=== PATIENT | male | born 1955 | race Hispanic/Latino ===

== ENCOUNTER 2018-05-09 13:58 | Emergency (ER) | payer MEDICARE, BC ==
[2018-05-09 13:58] VITALS: BMI 33.9
[2018-05-09 14:10] VITALS: RESP 18; TEMP 97.9
--- NOTE | 2018-05-09 14:37 | ED PDOC ---
Arrival/HPI - General Chief Complaint: Chest Pain Time Seen by Provider: 05/09/18 14:04 Historian: Patient, Family (Family member at bedside helped provide information ) - History of Present Illness Narrative History of Present Illness (Text): 05/09/18 14:12 62 year old male, whose past medical history includes anxiety, depression, kidney cancer (partial right kidney removal), prostate cancer, cardiac catherization, who presents to the emergency department complaining of sudden chest pressure and palpitations prior to arrival. Patient reports he was having lunch when he suddenly started sweating and feeling "anxious", so he went to turn the air conditioner in in his car to cool down. Patient notes he did not have to get any chemotherapy or other treatments for cancer. Patient denies any fevers or any other complaints. Deposit Clerk: Dr. Esquivel 05/09/18 15:59 Time/Duration: Prior to Arrival Symptom Onset: Sudden Symptom Course: Unchanged Activities at Onset: Light Past Medical History - Provider Review Nursing Documentation Reviewed: Yes - Renal Hx Renal Cancer: Yes Other/Comment: Prostate cancer - Psychiatric Hx Anxiety: Yes Hx Depression: Yes Hx Emotional Abuse: No Hx Physical Abuse: No Hx Substance Use: No - Surgical History Other/Comment: Partial right kidney removal - Suicidal Assessment Feels Threatened In Home Enviroment: No Family/Social History - Physician Review Nursing Documentation Reviewed: Yes Family/Social History: No Known Family HX Smoking Status: Unknown If Ever Smoked Hx Alcohol Use: No Hx Substance Use: No Hx Substance Use Treatment: No Allergies/Home Meds Allergies/Adverse Reactions: Allergies Penicillins Adverse Reaction (Verified 05/09/18 14:11) ANAPHYLAXIS Home Medications: Home Meds Medication Instructions Recorded Confirmed Alprazolam [Xanax] 1 mg PO QID 01/15/12 01/15/12 Atorvastatin [Lipitor] 20 mg PO DAILY 01/15/12 01/15/12 Losartan/Hydrochlorothiazide 1 tab PO DAILY 01/15/12 01/15/12 [Hyzaar 12.5 mg-100 mg] Sertraline [Zoloft] 25 mg PO DAILY 01/15/12 01/15/12 buPROPion SR [Wellbutrin SR] 150 mg PO DAILY 01/15/12 01/15/12 Review of Systems - Physician Review All systems were reviewed & negative as marked: Yes - Review of Systems Constitutional: Other (Patient notes sudden sweating prior to arrival ). absent: Normal, Fevers Cardiovascular: Chest Pain (Pt notes sudden chest pressure prior to arrival ), Palpitations (Patient notes sudden palpitations prior to arrival ). absent: Normal Psychiatric: Anxiety (Pt notes sudden anxiety prior to arrival ). absent: Norm al Physical Exam Vital Signs Reviewed: Yes Vital Signs Temp Pulse Resp BP Pulse Ox 05/09/18 14:07 97.9 F 104 H 18 128/89 97 Temperature: Afebrile Blood Pressure: Normal Pulse: Tachycardic Respiratory Rate: Normal Appearance: Positive for: Well-Appearing, Non-Toxic Pain Distress: None Mental Status: Positive for: Alert and Oriented X 3 - Systems Exam Head: Present: Atraumatic, Normocephalic Pupils: Present: PERRL Extroacular Muscles: Present: EOMI Conjunctiva: Present: Normal Mouth: Present: Moist Mucous Membranes Neck: Present: Normal Range of Motion Respiratory/Chest: Present: Clear to Auscultation, Good Air Exchange. No: Respiratory Distress, Accessory Muscle Use Cardiovascular: Present: Regular Rate and Rhythm, Normal S1, S2. No: Murmurs Abdomen: No: Tenderness, Distention, Peritoneal Signs Back: Present: Normal Inspection Upper Extremity: Present: Normal Inspection. No: Cyanosis, Edema Lower Extremity: Present: Normal Inspection. No: Edema Neurological: Present: GCS=15, CN II-XII Intact, Speech Normal Skin: Present: Warm, Dry, Normal Color. No: Rashes Psychiatric: Present: Alert, Oriented x 3, Anxious (Patient anxious, appearing normal on exam ) Medical Decision Making ED Course and Treatment: 05/09/18 14:12 Impression: 62 year old male who presents to the emergency department for sudden chest pressure and palpitations prior to arrival. 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 will need serial trop. dimer neg. pain improved. tachycardia resolved. asa given. accepted by dr helm. - RAD Interpretation Narrative RAD Interpretations (Text): X-Ray of chest reviewed by radiologist, shows: Dictated By: Phuc Coe Dictated Date/Time: 05/09/18 Impression: No active disease. No significant interval change compared to the prior examination(s). Radiology Orders: 05/09/18 14:18 CHEST PORTABLE [RAD] Stat Hazardous Substances Engineer: Radiologist - EKG Interpretation EKG Interpretation (Text): 05/09/18 EKG: Ordered, reviewed, and independently interpreted the EKG. Rate : 107 BPM Rhythm : Sinus Tachycardia Interpretation : No ST-segment elevations or depressions, no T-wave inversions, normal intervals. Interpreted by ED Physician: Yes Type: 12 lead EKG - Scribe Statement The provider has reviewed the documentation as recorded by the Scribe Hannah Jorge All medical record entries made by the Scribe were at my direction and personally dictated by me. I have reviewed the chart and agree that the record accurately reflects my personal performance of the history, physical exam, medical decision making, and the department course for this patient. I have also personally directed, reviewed, and agree with the discharge instructions and disposition. Disposition/Present on Arrival - Present on Arrival Any Indicators Present on Arrival: No History of DVT/PE: No History of Uncontrolled Diabetes: No Urinary Catheter: No History of Decub. Ulcer: No History Surgical Site Infection Following: None - Disposition Have Diagnosis and Disposition been Completed?: Yes Diagnosis: Chest pain Disposition: HOSPITALIZED Disposition Time: 14:00 Patient Problems: Current Active Problems Problem Status Onset Chest pain Acute Condition: STABLE
--- NOTE | 2018-05-09 14:45 | RAD ---
Date of service: 05/09/2018 HISTORY: Chest pain, palpitations. COMPARISON: 05/31/2016 FINDINGS: LUNGS: No active pulmonary disease. PLEURA: No significant pleural effusion identified, no pneumothorax apparent. CARDIOVASCULAR: No atherosclerotic calcification present No radiographic findings to suggest acute or significant cardiovascular disease. OSSEOUS STRUCTURES: No significant abnormalities. VISUALIZED UPPER ABDOMEN: Normal. OTHER FINDINGS: None. IMPRESSION: No active disease. No significant interval change compared to the prior examination(s).
[2018-05-09 14:59] LABS: BASO # 0.04 K/mm3 (0.0-2.0); BASO % 0.7 % (0.0-3.0); EOS # 0.1 (0.0-0.7); EOS % 1.3 % (1.5-5.0); HEMOGLOBIN 15.7 g/dL (14.0-18.0); LYMPH # 2.5 (1.2-3.4); LYMPH % 41.2 % (22.0-35.0); MEAN CELL VOLUME 93.7 fl (80.0-105.0); MEAN CORPUSCULAR HEMOGLOBIN 31.2 pg (25.0-35.0); MEAN CORPUSCULAR HGB CONC 33.3 g/dl (31.0-37.0); MEAN PLATELET VOLUME 9.7 fl (7.0-11.0); MONO # 0.5 (0.1-0.6); MONO % 7.8 % (1.0-6.0); RBC 5.04 10^6/uL (3.5-6.1); WHITE BLOOD COUNT 6.1 10^3/uL (4.5-11.0)
[2018-05-09 15:09] LABS: ALB/GLOB RATIO 1.5 (1.1-1.8); ALBUMIN 4.2 g/dL (3.0-4.8); ALT/SGPT 20 U/L (7-56); AST/SGOT 25 U/L (17-59); BLOOD UREA NITROGEN 17 mg/dL (7-21); CALCIUM 9.5 mg/dL (8.4-10.5); GFR NON-AFRICAN AMERICAN > 60
[2018-05-09 15:16] LABS: PARTIAL THROMBOPLASTIN TIME 35.6 Seconds (26.9-38.3); PROTHROMBIN TIME 12.2 SECONDS (9.4-12.5)
[2018-05-09 15:21] LABS: URINE BILIRUBIN NEGATIVE (NEGATIVE); URINE BLOOD NEGATIVE (NEGATIVE); URINE GLUCOSE (UA) NEGATIVE (NEGATIVE); URINE LEUKOCYTE ESTERASE NEGATIVE Leu/uL (NEGATIVE); URINE PROTEIN NEGATIVE mg/dL (<30 mg/dL); URINE UROBILINOGEN 0.2 E.U./dL (<1 E.U./dL)
[2018-05-09 15:23] LABS: URINE APPEARANCE CLEAR (CLEAR); URINE COLOR YELLOW (YELLOW)
[2018-05-09 15:23] LABS: B-TYPE NATRIURETIC PEPTIDE 97.2 pg/mL (0-450); TROPONIN I 0.02 ng/mL
[2018-05-09 15:31] LABS: D DIMER < 200 ng/mlDDU (0-243)
[2018-05-09 17:57] VITALS: BP 137/57; PULSE 79; O2SAT 96
--- NOTE | 2018-05-10 00:56 | CARD ---
APPROVED REPORT Date of service: 05/09/2018 EKG Measurement Heart [id number] <Conclusion> Sinus tachycardia NDSTT abnormalities Abnormal ECG
[2018-05-10] MEDS ORDERED: buPROPion SR 150 MG TABLET PO SCH (10:00)
== END 2018-05-09 17:37 | disposition left against medical advice (07) ==
LOC: ED 13:58 → UNDOADMIN 15:54 → ERH 15:54 → ED 17:37
DX: R07.9 Chest pain, unspecified (principal)